=== PATIENT | female | born 1960 | race Caucasian/White ===

== ENCOUNTER → 2017-03-30 | Outpatient (CLI) | payer OTHER | END | disposition home or self-care (01) | LOC: KCIC CT 08:25 | DX: M25.775 Osteophyte, left foot (principal); M25.774 Osteophyte, right foot | CPT/HCPCS: 73700 ==

== ENCOUNTER → 2018-11-22 | Outpatient (CLI) | payer OTHER ==
--- NOTE | 2018-11-23 09:45 | KCIC ---
EXAM: Bilateral screening mammogram. HISTORY: 57-year-old female presents for screening mammography. TECHNIQUE: Full-field digital craniocaudal and mediolateral oblique views of both breasts are obtained for evaluation. Computer aided detection with [employer] software version 9.3 was applied. COMPARISON: 09/01/2010 BREAST PARENCHYMAL DENSITY: Level B - Scattered fibroglandular densities. FINDINGS: There is no new suspicious mass, microcalcification or region of architectural distortion. There are circumscribed nodularity within the posterior inferior aspect of the left breast in the mediolateral projection which is partially included on the [id number] on the prior exam. The visualized portions of this lesion are stable. The greater than 8 year course of stability confirms benignity. IMPRESSION: BI-RADS Category 2: Benign finding(s). RECOMMENDATION: Annual mammography is recommended. If your mammogram demonstrates that you have dense breast tissue, which could hide abnormalities, and if you have other risk factors for breast cancer that have been identified, you might benefit from supplemental screening tests that may be suggested by your ordering physician. Dense breast tissue, in and of itself, is a relatively common condition. This information is not provided to cause undue concern, but rather to raise your awareness and to promote discussion with your physician regarding the presence of other risk factors, in addition to dense breast tissue. A report of your mammography results will be sent to you and your physician. You should contact your physician if you have any questions or concerns regarding this report. Mammography is a sensitive method for finding small breast cancers, but it does not detect them all and is not a substitute for careful clinical examination. A negative mammogram does not negate a clinically suspicious finding and should not result in delay in biopsying a clinically suspicious abnormality. PQRS compliance statement - Patient information was entered into a reminder system with a target due date for the next mammogram. "Our facility is accredited by the [employer] Mammography Program." Electronically signed by: Rhiannon James MD (11/23/2018 9:43 AM) [id number]
== END | disposition home or self-care (01) ==
LOC: KCIC MAMMO 11:10
PROVIDERS: ATTEND Family Medicine
DX: Z12.31 Encounter for screening mammogram for malignant neoplasm of breast (principal); N64.89 Other specified disorders of breast
CPT/HCPCS: 77067